=== PATIENT | male | born 1940 | race Caucasian/White ===

== ENCOUNTER 2021-12-24 18:44 | Emergency (ER) | payer OTHER ==
[~2021-12-24] VITALS: Ht 172.7 cm; Wt 83.9 kg
[2021-12-24 18:45] VITALS: BP 181/62
[2021-12-24] MEDS ORDERED: GABAPENTIN 300 MG CAPSULE PO SCH (19:00)
[2021-12-24] MEDS ORDERED: GABA300C PO (19:00)
[2021-12-24] MEDS ORDERED: VALA10002 PO (19:00)
== END 2021-12-24 19:23 | disposition home or self-care (01) ==
LOC: EDH 18:44
DX: B02.9 Zoster without complications (principal); L30.9 Dermatitis, unspecified; Z88.6 Allergy status to analgesic agent; Z88.8 Allergy status to other drugs, medicaments and biological substances; Z90.49 Acquired absence of other specified parts of digestive tract